=== PATIENT | female | born 1985 | race Caucasian/White ===

== ENCOUNTER 2016-09-07 16:26 | Emergency (ER) | payer OTHER ==
[2016-09-07 17:03] VITALS: BP 117/66
--- NOTE | 2016-09-07 17:08 | EDM.PDOC ---
ED HPI GENERAL MEDICAL PROBLEM - General Chief Complaint: ENT Problem Stated Complaint: PT HAS SORE THROAT Time Seen by Provider: 09/07/16 17:00 - History of Present Illness INITIAL COMMENTS - FREE TEXT/NARRATIVE: HISTORY AND PHYSICAL: History of present illness: The patient is a 22-year-old female who is healthy and did not ever have a tonsillectomy and presents with complaints of sore throat and lymph node swelling of her neck that started when she woke up this morning. She's not had a fever but has felt rundown is not any chest pain shortness of breath vomiting cough earache or nasal congestion. Patient is able to eat and speak but there is discomfort with this. Review of systems: As per history of present illness and below otherwise all systems reviewed and negative. Past medical history: As per history of present illness and as reviewed below otherwise noncontributory. Surgical history: As per history of present illness and as reviewed below otherwise noncontributory. Social history: No reported history of drug or alcohol abuse. Family history: As per history of present illness and as reviewed below otherwise noncontributory. Physical exam: General: Well-developed well-nourished female who is nontoxic and vital signs were reviewed by me. Patient speaks with slightly hoarse voice but it is not muffled HEENT: Atraumatic, normocephalic, pupils reactive, negative for conjunctival pallor or scleral icterus, mucous membranes moist, throat clear of exudates but bilateral tonsillar areas have swelling and erythema but the uvula is midline, there is anterior cervical adenopathy which is tender no posterior adenopathy or nuchal rigidity,, neck supple, nontender, trachea midline. Lungs: Clear to auscultation, breath sounds equal bilaterally, chest nontender. Heart: S1S2, regular rate and rhythm no overt murmurs Abdomen: Soft, nondistended, nontender. NABS. Genitourinary: Deferred. Rectal: Deferred. Extremities: Atraumatic, negative for cords or calf pain. Neurovascular unremarkable. Neuro: Awake, alert, oriented. Cranial nerves II through XII unremarkable. Cerebellum unremarkable. Motor and sensory unremarkable throughout. Exam nonfocal. Diagnostics: [] Therapeutics: [] Impression: Tonsillitis/pharyngitis Definitive disposition and diagnosis as appropriate pending reevaluation and review of above. throat Pain Score (Numeric/FACES): 6 - Related Data Allergies Allergy/AdvReac Type Severity Reaction Status Date / Time No Known Allergies Allergy Verified 09/07/16 16:57 Home Meds: Home Meds . [No Known Home Meds] 09/07/16 [History] ED ROS GENERAL - Review of Systems Review Of Systems: ROS reveals no pertinent complaints other than HPI. ED EXAM, GENERAL - Physical Exam Exam: See Below (See dictation) Course - Vital Signs Last Recorded V/S: Last Vital Signs Temp 35.5 C 09/07/16 16:58 Pulse 83 09/07/16 16:58 Resp 18 09/07/16 16:58 BP 117/66 09/07/16 16:58 Pulse Ox 97 09/07/16 16:58 Departure - Departure Time of Disposition: 17:07 Disposition: Home, Self-Care 01 Condition: good Clinical Impression: Tonsillitis Forms: ED Department Discharge Additional Instructions: The following information is given to patients seen in the emergency department who are being discharged to home. This information is to outline your options for follow-up care. We provide all patients seen in our emergency department with a follow-up referral. The need for follow-up, as well as the timing and circumstances, are variable depending upon the specifics of your emergency department visit. If you don't have a primary care physician on staff, we will provide you with a referral. We always advise you to contact your personal physician following an emergency department visit to inform them of the circumstance of the visit and for follow-up with them and/or the need for any referrals to a consulting specialist. The emergency department will also refer you to a specialist when appropriate. This referral assures that you have the opportunity for followup care with a specialist. All of these measure are taken in an effort to provide you with optimal care, which includes your followup. Under all circumstances we always encourage you to contact your private physician who remains a resource for coordinating your care. When calling for followup care, please make the office aware that this follow-up is from your recent emergency room visit. If for any reason you are refused follow-up, please contact the [facility] emergency department at and ask to speak to the emergency department charge nurse. [facility] Primary [facility]- [facility] [address] [place] [address] Push hydration as we discussed in use [id number] Tylenol/ibuprofen for fever and pain. Take antibiotics you've been prescribed from [facility] , amoxicillin, until they're finished. Please call and followup with a clinic appointment for recheck and reevaluation and care plan and return here as needed and as discussed.
== END 2016-09-07 17:19 | disposition home or self-care (01) ==
LOC: MW.ED 16:26
DX: J03.90 Acute tonsillitis, unspecified (principal); M54.2 Cervicalgia
CPT/HCPCS: 99282; 99283